=== PATIENT | female | born 1990 ===

== ENCOUNTER 2017-09-24 14:35 | Emergency (ER) | payer MEDICAID, OTHER ==
[2017-09-24] MEDS ORDERED: Sodium Chloride 0.9% 1,000 ML IV ONE (15:48)
--- NOTE | 2017-09-24 15:52 | C.PDOC ---
History Of Present Illness 26yo female, no known past medical history, presents to ED with complaints of fever and abdominal pain since yesterday. She denies any associated nausea, vomiting, diarrhea, urinary symptoms. No other medical complaints. Time Seen by Provider: 09/24/17 15:40 Chief Complaint (Nursing): Abdominal Pain History Per: Patient History/Exam Limitations: no limitations Onset/Duration Of Symptoms: Days (1) Current Symptoms Are (Timing): Still Present Location Of Pain/Discomfort: Diffuse, Epigastric Quality Of Discomfort: "Pain" Associated Symptoms: Fever. denies: Chills, Nausea, Vomiting, Diarrhea, Urinary Symptoms Recent travel outside of the [place]: No Abnormal Vaginal Bleeding: No Past Medical History Reviewed: Historical Data, Nursing Documentation, Vital Signs Vital Signs: Last Vital Signs Temp 98.6 F 09/24/17 17:18 Pulse 90 09/24/17 17:18 Resp 18 09/24/17 17:18 BP 102/74 09/24/17 17:18 Pulse Ox 99 09/24/17 17:18 - Medical History PMH: No Chronic Diseases Surgical History: Tonsillectomy Family History: States: Unknown Family Hx - Social History Hx Tobacco Use: No Hx Alcohol Use: No Hx Substance Use: No - Immunization History Hx Tetanus Toxoid Vaccination: No Hx Influenza Vaccination: No Hx Pneumococcal Vaccination: No Review Of Systems Except As Marked, All Systems Reviewed And Found Negative. Constitutional: Positive for: Fever. Negative for: Chills Gastrointestinal: Positive for: Abdominal Pain. Negative for: Nausea, Vomiting , Diarrhea Genitourinary: Negative for: Dysuria, Frequency, Hematuria Physical Exam - Physical Exam Appears: Non-toxic, No Acute Distress Skin: Normal Color, Warm, Dry Head: Atraumatic, Normacephalic Eye(s): bilateral: Normal Inspection Oral Mucosa: Moist Neck: Normal ROM, Supple Chest: Symmetrical Cardiovascular: Rhythm Regular Respiratory: Normal Breath Sounds Gastrointestinal/Abdominal: Normal Exam, Soft, No Tenderness, No Guarding, No Rebound Extremity: Normal ROM, No Deformity Neurological/Psych: Oriented x3 Gait: Unsteady ED Course And Treatment - Laboratory Results Result Diagrams: 09/24/17 16:13 09/24/17 16:13 Lab Interpretation: Normal Urine POC: Negative O2 Sat by Pulse Oximetry: 98 (RA) Pulse Ox Interpretation: Normal Progress Note: Treated with IVF NSS, pepcid, myaalanta and toradol. On re- evaluation abdomen soft, in no distress Reassessment Condition: Improved Medical Decision Making Medical Decision Making: Plan: -- Labs -- Urinalysis -- Toradol 30 mg IVP -- Pepcid 20 mg IVP -- IV Fluids Disposition Counseled Patient/Family Regarding: Studies Performed, Diagnosis, Need For Followup - Disposition Referrals: [facility] [Outside] [facility] [Outside] Disposition: HOME/ ROUTINE Disposition Time: 17:00 Condition: STABLE Additional Instructions: Return to ED if any increase symptoms Instructions: Acute Abdomen (Belly Pain) Forms: [employer] (Romanian) - POA Present On Arrival: None - Clinical Impression Clinical Impression: Abdominal pain - 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 - Scribe Statement The provider has reviewed the documentation as recorded by the Scribe (Va Richardson) Provider Attestation: All medical record entries made by the Scribe were at my direction and personally dictated by me. I have reviewed the chart and agree that the record accurately reflects my personal performance of the history, physical exam, medical decision making, and the department course for this patient. I have also personally directed, reviewed, and agree with the discharge instructions and disposition.
[2017-09-24 16:20] LABS: HCG,QUALITATIVE URINE NEGATIVE (NEGATIVE)
[2017-09-24 16:21] LABS: BASO % 0.2 % (0.0-2.0); EOS % 0.3 % (0.0-4.0); LYMPH # 0.9 K/uL (1.0-4.3); LYMPH % 27.8 % (20.0-40.0); MEAN CORPUSCULAR HEMOGLOBIN 30.1 pg (27.0-31.0); MEAN CORPUSCULAR HGB CONC 34.1 g/dL (33.0-37.0); MEAN PLATELET VOLUME 7.2 fL (7.2-11.7); MONO # 0.3 K/uL (0.0-0.8); MONO % 8.1 % (0.0-10.0); NEUT % 63.6 % (50.0-75.0); NRBC % 0.2 % (0.0-2.0); RBC 4.5 Mil/uL (3.80-5.20); RED CELL DISTRIBUTION WIDTH 13.4 % (11.5-14.5); WHITE BLOOD COUNT 3.2 K/uL (4.8-10.8)
[2017-09-24 16:22] LABS: HEMOGLOBIN 13.6 g/dL (11.0-16.0); MEAN CELL VOLUME 88.4 fL (81.0-99.0)
[2017-09-24 16:25] LABS: SQUAMOUS EPITHIAL 4 /hpf (0-5); URINE BILIRUBIN NEGATIVE (NEGATIVE); URINE BLOOD 2+ (NEGATIVE); URINE CLARITY Hazy (Clear); URINE COLOR Yellow (YELLOW); URINE GLUCOSE (UA) NORMAL (Normal); URINE LEUKOCYTE ESTERASE 1+ Leu/uL (Negative); URINE PROTEIN NEGATIVE (NEGATIVE); URINE UROBILINOGEN NORMAL mg/dL (0.2-1.0)
[2017-09-24 16:30] LABS: ALB/GLOB RATIO 1.2 (1.0-2.1); ALBUMIN 3.9 g/dL (3.5-5.0); ALT/SGPT 25 U/L (9-52); AST/SGOT 22 U/L (14-36); BLOOD UREA NITROGEN 13 mg/dL (7-17); GFR AFRICAN-AMERICAN > 60; GFR NON-AFRICAN AMERICAN > 60; LIPASE 71 U/L (23-300)
[2017-09-24 17:30] VITALS: BP 102/74; PULSE 90; RESP 18; TEMP 98.6
[2017-09-24 18:33] VITALS: O2SAT 98
== END 2017-09-24 17:18 | disposition home or self-care (01) ==
LOC: C.ER 14:35
DX: R10.9 Unspecified abdominal pain (principal)
CPT/HCPCS: 80053; 81001; 83690; 84703; 85025; 96361; 96374; 96375; 99285; J1885; J7040

== ENCOUNTER 2018-05-05 17:52 | Emergency (ER) | payer SELFPAY ==
[2018-05-05 17:57] VITALS: BMI 25.7
[2018-05-05] MEDS ORDERED: Tobramycin/Dexamethasone (Tobradex) Opth Sol (2.5 ml) OD STA (18:11)
--- NOTE | 2018-05-05 18:14 | C.PDOC ---
History Of Present Illness 27 yo female come sin for evaluation of Right eye pain, light sensitivity gradually developed since today AM " after my baby by accident poke my eye". Pt denies blurry vision, eye discharge, contact use, denies any other active complaints. Ambulate to Ed for evaluation, appears in pain. Time Seen by Provider: 05/05/18 17:58 Chief Complaint (Nursing): Eye Problem History Per: Patient History/Exam Limitations: no limitations Onset/Duration Of Symptoms: Hrs Current Symptoms Are (Timing): Still Present Severity: Moderate Past Medical History Reviewed: Historical Data, Nursing Documentation, Vital Signs - Medical History PMH: No Chronic Diseases Surgical History: Tonsillectomy Family History: States: No Known Family Hx - Social History Hx Tobacco Use: No Hx Alcohol Use: No Hx Substance Use: No - Immunization History Hx Tetanus Toxoid Vaccination: No Hx Influenza Vaccination: Yes (2017) Hx Pneumococcal Vaccination: No Review Of Systems Except As Marked, All Systems Reviewed And Found Negative. Constitutional: Negative for: Fever, Chills Eyes: Positive for: Pain (right eye pain). Negative for: Vision Change Physical Exam - Physical Exam Appears: Well, Non-toxic, No Acute Distress Skin: Normal Color, Warm, Dry, No Rash Head: Normacephalic Eye(s): bilateral: PERRL, EOMI (no pain or limitation on extraocular movement), right: Other (fluoresceine uptake at 12 o'clock, mild conjuctival injection, No periorbital edema or erythema.) Ear(s): Bilateral: Normal Nose: No Flaring, No Discharge Oral Mucosa: Moist Tongue: Normal Appearing Lips: Normal Appearing Throat: No Erythema, No Drooling Neck: Supple Extremity: Normal ROM, No Deformity, No Swelling Neurological/Psych: Oriented x3, Normal Speech ED Course And Treatment O2 Sat by Pulse Oximetry: 100 (RA) Pulse Ox Interpretation: Normal Progress Note: On re-evaluation, pt is afebrile, hemodynamicaly stable. Non- toxic. Head: AT/NC. Right eye: (+) flou uptake at 12 o'clock, no evidence of corneal FB or ulcer, mild conjuctival injection. No pain or limitation on extraocular movement. VA: Right20/200, Left 20/100, B/L 20/100 w/o correction " forgot my glasses". Neck: Supple, (-) JVD. ENT: no acute findings. Neurological intact. Eye patch allied to Right eye. Pt has clinical findings c/w Right corneal abrasion. Pt advised. ref. to F/u with Opht in 1-2 days for re-eval. return if any new changes Disposition Counseled Patient/Family Regarding: Diagnosis, Need For Followup, Rx Given - Disposition Referrals: Jose L Vazquez MD [Staff Provider] - Disposition: HOME/ ROUTINE Disposition Time: 18:20 Condition: STABLE Additional Instructions: Eye patch to Right eye for 1 week, avoid sun exposure Take medication as prescribed Follow up with Ophthalmology in 1-2 days for re-evaluation. return to Ed if any worsening or new changes. 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 - Scribe Statement The provider has reviewed the documentation as recorded by the Teodoroibe Greyson Desir Provider Attestation All medical record entries made by the Teodoroibe were at my direction and personally dictated by me. I have reviewed the chart and agree that the record accurately reflects my personal performance of the history, physical exam, medical decision making, and the department course for this patient. I have also personally directed, reviewed, and agree with the discharge instructions and disposition.
[2018-05-05] MEDS ORDERED: Tobramycin 0.3% OPH OINT ONE (18:39)
[2018-05-05 18:41] VITALS: BP 105/69; PULSE 65; RESP 16; TEMP 98.9; O2SAT 100
== END 2018-05-05 18:55 | disposition home or self-care (01) ==
LOC: C.ER 17:52
DX: S05.01XA Injury of conjunctiva and corneal abrasion without foreign body, right eye, initial encounter (principal); W50.0XXA Accidental hit or strike by another person, initial encounter

== ENCOUNTER 2018-10-02 19:13 | Emergency (ER) | payer SELFPAY ==
[2018-10-02 19:13] VITALS: BMI 25.7
[2018-10-02 19:28] VITALS: BP 115/79; PULSE 104; RESP 18; O2SAT 99
[2018-10-02 20:41] LABS: INFLUENZA A B POS FOR INFLUENZA B (NEGATIVE)
[2018-10-02 20:52] VITALS: TEMP 100.4
--- NOTE | 2018-10-02 21:02 | C.PDOC ---
History Of Present Illness 27 year old female presents to the ED for evaluation of fever, cough, headache and generalized body aches which began two days ago. Patient developed sore throat and hoarse voice today, prompting visit. Patient denies shortness of breath, nausea, vomiting, sick contacts and recent travel. HPI: Influenza Time Seen by Provider: 10/02/18 19:31 Chief Complaint: Flu-like Symptoms History Per: Patient Exam Limitations: no limitations Onset/Duration Of Symptoms: Days Symptoms include: fever, headache, cough Past Medical History Reviewed: Historical Data, Nursing Documentation, Vital Signs Vital Signs: Last Vital Signs Temp 100.4 F H 10/02/18 20:52 Pulse 104 H 10/02/18 19:23 Resp 18 10/02/18 19:23 BP 115/79 10/02/18 19:23 Pulse Ox 99 10/02/18 19:23 - Medical History PMH: No Chronic Diseases Surgical History: Tonsillectomy Family History: States: Unknown Family Hx - Social History Hx Tobacco Use: No Hx Alcohol Use: No Hx Substance Use: No - Immunization History Hx Tetanus Toxoid Vaccination: No Hx Influenza Vaccination: No Hx Pneumococcal Vaccination: No Review Of Systems Constitutional: Positive for: Fever ENT: Positive for: Throat Pain Respiratory: Negative for: Shortness of Breath Musculoskeletal: Positive for: Other (body aches ) Neurological: Positive for: Headache Physical Exam - Physical Exam Appears: Non-toxic, No Acute Distress Skin: Normal Color, Warm, Dry Head: Atraumatic, Normacephalic Eye(s): bilateral: Normal Inspection Ear(s): Bilateral: Normal Nose: Normal, No Discharge Oral Mucosa: Moist Throat: Erythema (mild ), No Other (tonsillar enlargement ) Neck: Normal ROM, Supple Lymphatic: No Adenopathy Chest: Symmetrical, No Deformity, No Tenderness Cardiovascular: Rhythm Regular, No Murmur Respiratory: Normal Breath Sounds, No Rales, No Rhonchi, No Wheezing Extremity: Normal ROM, Capillary Refill (less than 2 seconds ) Neurological/Psych: Normal Speech, Normal Cognition - ECG O2 Sat by Pulse Oximetry: 99 - Progress ED Course And Treament: Flu swab and Rapid strep test ordered. Rapid strep is negative. Patient is positive for Flu B. Motrin PO and Tamiflu PO given. On reassessment, patient is resting comfortably, showing no signs of distress and is stable for discharge. Patient is advised to f/u with her PMD within 1-2 days for further evaluation. Disposition Counseled Patient/Family Regarding: Diagnosis, Need For Followup, Rx Given - Disposition Disposition: HOME/ ROUTINE Disposition Time: 20:58 Condition: STABLE Additional Instructions: Please follow up in clinic Bed rest Take medications as directed Increase PO fluids Return to ER if worse Prescriptions: Benzonatate [Tessalon Perles] 200 mg PO TID #14 sgl Cetirizine HCl [Zyrtec] 10 mg PO DAILY #14 capsule Ibuprofen [Motrin] 600 mg PO Q6H #30 tab Oseltamivir Cap [Tamiflu] 75 mg PO BID #10 cap Instructions: Flu, Adult (DC) Forms: [employer] (Macedonian), Work Excuse - Clinical Impression Clinical Impression: Influenza B, Viral pharyngitis - 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 - Scribe Statement The provider has reviewed the documentation as recorded by the Scribe (Riri Aquino) All medical record entries made by the Scribe were at my direction and personally dictated by me. I have reviewed the chart and agree that the record accurately reflects my personal performance of the history, physical exam, medical decision making, and the department course for this patient. I have also personally directed, reviewed, and agree with the discharge instructions and disposition.
== END 2018-10-02 21:14 | disposition home or self-care (01) ==
LOC: C.ER 19:13
DX: J11.1 Influenza due to unidentified influenza virus with other respiratory manifestations (principal)

== ENCOUNTER 2018-10-05 21:56 | Emergency (ER) | payer SELFPAY ==
[2018-10-05 21:56] VITALS: BMI 25.7
[2018-10-05] MEDS ORDERED: Sodium Chloride 0.9% 1,000 ML IV ONE (22:42)
[2018-10-05] MEDS ORDERED: Sodium Chloride 0.9% 1,000 ML ONE (23:01)
--- NOTE | 2018-10-05 23:36 | C.PDOC ---
History Of Present Illness 27 year old female presents to the ER for continued flu like symptoms. She was seen 3 days ago, diagnosed with flu, given tamiflu which she has been compliant with but states she is still having flu like symptoms. Denies abdominal pain, nausea, or vomiting. Chief Complaint (Nursing): Chest Pain History Per: Patient History/Exam Limitations: no limitations Onset/Duration Of Symptoms: Days Sick Contacts (Context): None Recent travel outside of the [place]: No Past Medical History Reviewed: Historical Data, Nursing Documentation, Vital Signs Vital Signs: Last Vital Signs Temp 101.9 F H 10/05/18 22:21 Pulse 99 H 10/05/18 22:21 Resp 22 10/05/18 22:21 BP 103/68 10/05/18 22:21 Pulse Ox 98 10/05/18 22:21 Surgical History: Tonsillectomy Family History: States: Unknown Family Hx - Social History Hx Tobacco Use: No Hx Alcohol Use: No Hx Substance Use: No - Immunization History Hx Tetanus Toxoid Vaccination: No Hx Influenza Vaccination: No Hx Pneumococcal Vaccination: No Review Of Systems Constitutional: Positive for: Other (Flu like symptoms) Cardiovascular: Negative for: Chest Pain, Palpitations Respiratory: Negative for: Shortness of Breath Gastrointestinal: Negative for: Nausea, Vomiting, Abdominal Pain Neurological: Negative for: Weakness, Numbness Physical Exam - Physical Exam Appears: Non-toxic Skin: Normal Color, Other (Warm to touch) Head: Atraumatic, Normacephalic Eye(s): bilateral: Normal Inspection Ear(s): Bilateral: Normal Nose: Normal Oral Mucosa: Moist Throat: Normal, No Erythema, No Exudate Neck: Normal, Supple Chest: Symmetrical, No Tenderness Cardiovascular: Rhythm Regular Respiratory: Normal Breath Sounds, No Rales, No Rhonchi, No Wheezing Gastrointestinal/Abdominal: Soft, No Tenderness Back: No CVA Tenderness Neurological/Psych: Oriented x3, Normal Speech ED Course And Treatment O2 Sat by Pulse Oximetry: 98 (Room air) Pulse Ox Interpretation: Normal Progress Note: CXR ordered. IV fluids administered. Disposition - Disposition Referrals: Latonya Blake, [Non-Staff] - Disposition: HOME/ ROUTINE Disposition Time: 00:15 Condition: GOOD Additional Instructions: JOEL CHO, thank you for letting us take care of you today. The emergency medical care you received today was directed at your acute symptoms. If you were prescribed any medication, please fill it and take as directed. It may take several days for your symptoms to resolve. Return to the Emergency Department if your symptoms worsen, do not improve, or if you have any other problems. Please contact your doctor or call one of the physicians/clinics you have been referred to that are listed on the Patient Visit Information form that is included in your discharge packet. Bring any paperwork you were given at discharge with you along with any medications you are taking to your follow up visit. Our treatment cannot replace ongoing medical care by a primary care provider outside of the emergency department. Thank you for allowing the [facility] team to be part of your care today. Continue taking your medication as already prescribed and drink plenty of fluids. Follow up with your primary care doctor in 2-3 days for re-evaluation and further management. Instructions: Viral Syndrome (DC) Forms: [employer] (Lao) - Clinical Impression Clinical Impression: Viral syndrome - Scribe Statement The provider has reviewed the documentation as recorded by the Scribyaneli Alonzo All medical record entries made by the Scribe were at my direction and personally dictated by me. I have reviewed the chart and agree that the record accurately reflects my personal performance of the history, physical exam, medical decision making, and the department course for this patient. I have also personally directed, reviewed, and agree with the discharge instructions and disposition.
[2018-10-06 00:55] VITALS: BP 96/67; PULSE 88; RESP 18; TEMP 97.9
[2018-10-06 00:56] VITALS: O2SAT 98
--- NOTE | 2018-10-06 10:11 | RAD ---
Chest x-ray single frontal view HISTORY: Cough. COMPARISON: None available. Findings: No focal infiltrate or effusion. Heart size within normal limits. Impression: No focal infiltrate or effusion.
== END 2018-10-06 00:53 | disposition home or self-care (01) ==
LOC: C.ER 21:56
DX: B34.9 Viral infection, unspecified (principal)
CPT/HCPCS: 71045; 96360; 99285; J7030